=== PATIENT | male | born 1965 | race Caucasian/White ===

== ENCOUNTER 2020-03-04 08:21 | Emergency (ER) | payer OTHER ==
--- NOTE | 2020-03-04 08:40 | EDM.PDOC ---
ED HPI GENERAL MEDICAL PROBLEM - General Chief Complaint: Neuro Symptoms/Deficits Stated Complaint: FACIAL DROOPING X 2 DAYS Time Seen by Provider: 03/04/20 08:29 Source of Information: Reports: Patient History Limitations: Reports: No Limitations - History of Present Illness INITIAL COMMENTS - FREE TEXT/NARRATIVE: 54-year-old male presents to the ED for evaluation of left facial weakness that he first appreciated on Thursday morning March 02. Initially symptoms seem to wax and wane over that day but became more noticeable yesterday. He states he is not drooling but he is well aware that the left side of his face feels different and he is unable to close his left eye completely. He has no other neurological deficits. No headaches no nausea or vomiting. No history of Mcclellan's palsy in the past. Onset: Gradual Onset Date: 03/02/20 Duration: Day(s):, Getting Worse Location: Reports: Face (Left hemifacial weakness) Quality: Reports: Other Severity: Severe (Left hemifacial weakness) Improves with: Reports: None Worsens with: Reports: None Context: Reports: Other (Spontaneous occurrence). Denies: Activity, Exercise, Lifting, Sick Contact, Trauma Associated Symptoms: Denies: No Other Symptoms, Confusion, Chest Pain, Cough, cough w sputum, Diaphoresis, Fever/Chills, Headaches, Loss of Appetite, Malaise, Nausea/Vomiting, Rash, Shortness of Breath, Syncope Treatments [employer]: Reports: Other (see below) (Only his prescribed medications.) - Related Data Allergies Allergy/AdvReac Type Severity Reaction Status Date / Time No Known Allergies Allergy Verified 03/04/20 08:41 Home Meds: Home Meds Aspirin [[place] Aspirin] 81 mg PO DAILY 10/14/18 [History] Cetirizine [ZyrTEC] 10 mg PO DAILY 10/14/18 [History] Clopidogrel [Plavix] 75 mg PO DAILY 10/14/18 [History] Diltiazem IR [Cardizem] 30 mg PO DAILY 10/14/18 [History] Garlic 1,000 mg PO DAILY 10/14/18 [History] Ibuprofen 800 mg PO ASDIRECTED PRN 10/14/18 [History] Lisinopril/Hydrochlorothiazide [Lisinopril-Hctz 20-25 mg Tab] 1 each PO DAILY 10/14/18 [History] Multivitamin [Multivitamins] 1 each PO DAILY 10/14/18 [History] Ubidecarenone [Co Q-10] 400 mg PO DAILY 10/14/18 [History] atorvaSTATin Calcium [Lipitor] 40 mg PO DAILY 10/14/18 [History] oxyCODONE HCl/Acetaminophen [Percocet 5-325 mg Tablet] 1 each PO Q6H PRN 10/14/18 [History] polyethylene glycoL 3350 [MiraLAX] 17 gm PO DAILY PRN 10/14/18 [History] Erythromycin Base [Erythromycin 0.5% Ophth Oint] 1 applic OP BEDTIME #1 tube 03/04/20 [Rx] Eszopiclone [Lunesta] 3 mg PO BEDTIME #10 tab 03/04/20 [Rx] predniSONE [Prednisone] 20 mg PO TID #21 tablet 03/04/20 [Rx] traMADol [Ultram] 50 mg PO Q6HR PRN 03/04/20 [History] valACYclovir HCl [valACYclovir] 1,000 mg PO TID #21 tablet 03/04/20 [Rx] Past Medical History HEENT History: Reports: Allergic Rhinitis Cardiovascular History: Reports: Bypass (Triple bypass 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 Denies: Fever, Chills HEENT: Reports: Other (Unable to close left eye completely.) Respiratory: Reports: No Symptoms. Denies: Shortness of Breath, Wheezing Cardiovascular: Reports: Blood Pressure Problem, Edema. 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) Neurological: Reports: No Symptoms ( mid chest) Psychiatric: Reports: No Symptoms Hematologic/Lymphatic: Reports: No Symptoms Immunologic: Reports: No Symptoms ED EXAM, NEURO - Physical Exam Exam: See Below Exam Limited By: No Limitations General Appearance: Alert, WD/WN, No Apparent Distress, Other (Has obvious left facial hemiparesis and left upper eyelid ptosis.) Eye Exam: Bilateral Eye: Normal Inspection, PERRL, Other (Left upper eyelid ptosis and inability to close the eye completely.) Ears: Normal External Exam, Normal TMs Nose: Normal Inspection Throat/Mouth: Normal Inspection, Normal Lips, Normal Oropharynx, Other (Uvula is in the midline.) Head Exam: Atraumatic, Normocephalic Neck: Normal Inspection, Supple, Non-Tender, Full Range of Motion. No: Lymphadenopathy (L), Lymphadenopathy (R) Respiratory/Chest: No Respiratory Distress, Lungs Clear, Normal Breath Sounds, No Accessory Muscle Use, Chest Non-Tender Cardiovascular: Normal Peripheral Pulses, Regular Rate, Rhythm, No Edema, No Gallop, No Murmur, No Rub, Other (He has a healing large keloid scar mid sternum from open heart surgery a year ago) GI/Abdominal: Normal Bowel Sounds, Soft, Non-Tender, No Organomegaly, No Abnormal Bruit, No Mass, Pelvis Stable Neurological: Alert, Normal Mood/Affect, Normal Dorsiflexion, Normal Plantar Flexion, Normal Gait, Oriented x 3, Other (Left hemifacial weakness with slight alteration in sensation to light touch. Ptosis of the left upper eyelid and inability to close the eye completely and I can easily open it when he attempts to close it on his own.) DTR: 0: Patella (R), Patella (L), Achilles (R), Achilles (L), 2+: Bicep (R), Bicep (L) Extremities: Normal Inspection, Normal Range of Motion, Non-Tender, No Pedal Edema, Other Psychiatric: Normal Affect, Normal Mood Skin Exam: Warm, Dry, Intact, Normal Color, No Rash Course - Vital Signs Last Recorded V/S: Last Vital Signs Temp 36.4 C 03/04/20 08:29 Pulse 73 03/04/20 08:29 Resp 18 03/04/20 08:29 BP 146/85 H 03/04/20 08:29 Pulse Ox 97 03/04/20 08:29 - Orders/Labs/Meds Meds: Medications Discontinued Medications Generic Name Dose Route Start Last Admin Trade Name Jovita PRN Reason Stop Dose Admin Prednisone 20 mg 03/04/20 08:42 Prednisone PO 03/04/20 08:43 ONETIME ONE Valacyclovir HCl 1,000 mg 03/04/20 08:42 Valtrex PO 03/04/20 08:43 ONETIME ONE - Radiology Interpretation Free Text/Narrative:: 54-year-old male presents to the ED with gradually developing left hemiparesis of the face over the last 2 days. States initially symptoms seem to wax and wane on Thursday, March 05 but were pretty constant yesterday and definitely this morning. He is unable to close his left eye completely. No other neurological deficits identified. Diagnosis is Mcclellan's palsy. He will be treated with steroids prednisone 20 mg 3 times daily for the next week and valacyclovir 1 g 3 times daily for the next week. Artificial tears to the left eye and Lubriderm ophthalmic if he can find it or erythromycin 0.5% ointment to the inner lower eyelid at bedtime and double patch the eye closed overnight until ability to close the eye completely returns. Departure - Departure Time of Disposition: :43 Disposition: Home, Self-Care 01 Condition: Fair Clinical Impression: Mcclellan's palsy - Discharge Information *PRESCRIPTION DRUG MONITORING PROGRAM REVIEWED*: Not Applicable *COPY OF PRESCRIPTION DRUG MONITORING REPORT IN PATIENT GEORGE: Not Applicable Prescriptions: Erythromycin Base [Erythromycin 0.5% Ophth Oint] 1 applic OP BEDTIME #1 tube Eszopiclone [Lunesta] 3 mg PO BEDTIME #10 tab predniSONE [Prednisone] 20 mg PO TID #21 tablet valACYclovir HCl [valACYclovir] 1,000 mg PO TID #21 tablet Referrals: Kevan Underwood MD [Primary Care Provider] - Forms: ED Department Discharge Additional Instructions: Evaluation in the emergency room today in regards to left nimco-facial weakness and droop with difficulty closing her left eye that is developed over the last 2 days. The remainder of your neuro exam is normal. Currently you are experiencing a inflammation of the 7th cranial nerve on the left side which we called Mcclellan's palsy. The inflammation is almost always caused by a viral infection. Treatment is antiviral medication valacyclovir 1 g 3 times daily for the next 7 days. Steroids prednisone 20 mg by mouth 3 times daily for the next 7 days as well preferably with food. Lunesta 3 mg at bedtime was prescribed to help sleep as the steroids will often cause further sleep disruption. Artificial tears to the left eye usually 2 drops every 4 hours during the day. Suggest left eye to be patch closed overnight until able to close her eye tightly on your own. Suggest application of erythromycin 0.5% ophthalmic ointment to the inner lower eyelid at bedtime to keep the cornea moist overnight. Follow-up with personal care physician in 8 days time. Just some eye pads at the drugstore usually used to them and tape the left eye closed overnight until eyelid function returns to normal Sepsis Event Note (ED) - Focused Exam Vital Signs: Vital Signs Temp Pulse Resp BP Pulse Ox 03/04/20 08:29 36.4 C 73 18 146/85 H 97
[2020-03-04] MEDS ORDERED: valACYclovir 500 MG Tab PO ONE (08:42)
[2020-03-04] MEDS ORDERED: predniSONE 20 MG Tab PO ONE (08:42)
== END 2020-03-04 09:14 | disposition home or self-care (01) ==
LOC: JD.ED 08:21
DX: G51.0 Bell's palsy (principal); Z79.02 Long term (current) use of antithrombotics/antiplatelets; Z79.82 Long term (current) use of aspirin; Z79.899 Other long term (current) drug therapy
CPT/HCPCS: 99283; A9270; J7512